=== PATIENT | female | born 1995 | race African-American/Black ===

== ENCOUNTER 2017-01-17 14:40 | Emergency (ER) | payer MEDICAID ==
[~2017-01-17] VITALS: Ht 167.6 cm; Wt 68.0 kg
[2017-01-17 15:15] VITALS: BP 115/65
[2017-01-17] MEDS ORDERED: KETOROLAC TROMETH 60MG/2ML VIAL IM ONE (17:15)
== END 2017-01-17 17:59 | disposition home or self-care (01) ==
LOC: ER 14:43
DX: G43.909 Migraine, unspecified, not intractable, without status migrainosus (principal)
CPT/HCPCS: 96372; 99283; J1885

== ENCOUNTER 2020-01-25 10:23 | Inpatient (IN) | payer MEDICAID ==
[~2020-01-25] VITALS: Ht 167.6 cm; Wt 59.0 kg
[2020-01-25] MEDS ORDERED: SODIUM CHLORIDE 0.9% 1,000 ML IV ONE ×2 (10:48)
[2020-01-25 10:51] LABS: Basophils # (auto) 0.1 10 ^3/uL (0-0.2); Basophils % (auto) 0.4 % (0.0-2.0); Eosinophils # (auto) 0 10 ^3/uL (0-0.8); Eosinophils % (auto) 0.2 % (0.0-7.0); Hemoglobin 12.3 g/dL (12.2-16.2); Lymphocytes # (auto) 1.2 10 ^3/uL (0.4-5.4); Lymphocytes % (auto) 7.9 % (10.0-50.0); Mean Corpuscular Hemoglobin 27.9 pg (28.0-32.0); Mean Corpuscular Hgb Conc. 32.3 g/dL (32.0-36.0); Mean Corpuscular Volume 86.2 fL (80.0-100.0); Monocytes % (auto) 6.8 % (0.0-12.0); Neutrophils # (auto) 12.9 10 ^3/uL (1.6-8.6); Neutrophils % (auto) 84.7 % (37.0-80.0); Nucleated Red Blood Cells % 0.1 %; Platelet Count (auto) 313 10^3/uL (140-450); Red Cell Distribution Width 19.1 % (11.8-14.3); White Blood Cell 15.2 10^3/uL (4.4-10.8)
[2020-01-25] MEDS ORDERED: IOHEXOL 300 MG/ML 100ML BOTTLE IJ ONE (10:55)
[2020-01-25 11:04] LABS: Albumin 3.5 g/dL (3.4-5.0); Calcium 9.1 mg/dL (8.5-10.1); Potassium 3.8 mmol/L (3.5-5.1)
[2020-01-25 11:06] LABS: INR 1.12 (0.9-1.15); Partial Thromboplastin Time 26.1 sec (23.64-32.05)
[2020-01-25 11:07] LABS: BUN/Creatinine Ratio 18.1; Bilirubin, Total 1.5 mg/dL (0.2-1.0); Total Protein 8.6 g/dL (6.4-8.2)
[2020-01-25] MEDS ORDERED: ONDANSETRON HCL 4 MG/2 ML VIAL IV ONE (11:45)
[2020-01-25] MEDS ORDERED: MORPHINE SULFATE 4 MG/ML SYR/VIAL IV ONE (11:45)
[2020-01-25] MEDS ORDERED: PIPERACILLIN-TAZOB 3.375GM 100 ML IV ONE (11:45)
[2020-01-25] MEDS ORDERED: ONDANSETRON HCL 4 MG/2 ML VIAL IV PRN (12:15)
[2020-01-25] MEDS: SODIUM CHLORIDE 0.9% 1,000 ML IV SCH ×2 (12:29→20:53)
[2020-01-25] MEDS ORDERED: metroNIDAZOLE 500MG/100ML 100 ML IV SCH (14:00)
--- NOTE | 2020-01-25 14:10 | NUR ---
MS admit from ER ALISHA DECKER admitted to tele/MS after SBAR received from MAAME Barbour. Patient oriented to KAROLINA CHACKO RN primary RN, unit, room, bed, and unit policies regarding patient care and visiting hours. Bed in lowest/locked position, bed rails up x2, call light within reach. Patient weighed by bedscale and encouraged to call if they need something. All questions and concerns addressed, patient verbalized understanding.
--- NOTE | 2020-01-25 14:50 | NUR ---
PAIN PATIENT C/O 03/23 TO NOEL ARRIAGA. WILL MEDICATE PER MD ORDERS
[2020-01-25] MEDS: HYDROmorphone HCL 2 MG/ML VL IV PRN ×2 (15:13→20:24)
--- NOTE | 2020-01-25 19:30 | NUR ---
Opening Shift Note Report received from day shift RN. Assumed care. Patient awake and A&O x4. No S/S of distress/SOB noted and denies pain at this time. Instructed on POC and to call for assist PRN, will continue to monitor for changes Q1hr and PRN.
--- NOTE | 2020-01-25 20:24 | NUR ---
PAIN PATIENT COMPLAINED OF ABDOMINAL PAIN 7/10 ON A NUMERICAL SCALE. WILL MEDICATE PER MD ORDERS.
--- NOTE | 2020-01-25 20:54 | NUR ---
PAIN REASSESSMENT PATIENT NOTED RESTING IN BED COMFORTABLY AND DENIES PAIN AT THIS TIME. WILL CONTINUE TO MONITOR.
--- NOTE | 2020-01-25 21:10 | NUR ---
PATIENT COMPLAINED OF DIZZINESS. BLOOD GLUCOSE LEVEL CHECKED: 46 HOSPITALIST PAGED. PATIENT AWAKE AND ALERT AND ORIENTATED.
--- NOTE | 2020-01-25 21:19 | NUR ---
HOSPITALIST CALLED BACK. NEW ORDERS GIVEN, READ BACK, AND VERIFIED.
[2020-01-25] MEDS ORDERED: DEXTROSE (50%) 50ML SYRG IV ONE (21:30)
[2020-01-25] MEDS: D5W/SOD CHL 0.45% 1,000 ML IV SCH (21:38)
[2020-01-25 22:00] VITALS: BP 114/73
--- NOTE | 2020-01-25 22:29 | NUR ---
BLOOD GLUCOSE REASSESSMENT: 136 WILL CONTINUE TO MONITOR
--- NOTE | 2020-01-26 04:45 | NUR ---
URINE SAMPLE COLLECTED AND SENT TO THE LAB.
[2020-01-26 05:00] VITALS: BP 104/63
[2020-01-26 05:21] LABS: Urine Bacteria FEW /hpf (None Seen); Urine Blood 2+ /uL (Negative); Urine Mucus FEW (None Seen); Urine Specific Gravity 1.016 (1.001-1.035); Urine WBC 1 /hpf (0 - 5)
[2020-01-26 05:32] LABS: Basophils # (auto) 0 10 ^3/uL (0-0.2); Basophils % (auto) 0.1 % (0.0-2.0); Eosinophils # (auto) 0.1 10 ^3/uL (0-0.8); Eosinophils % (auto) 0.5 % (0.0-7.0); Hematocrit 31.6 % (36.0-46.0); Hemoglobin 10.2 g/dL (12.2-16.2); Lymphocytes # (auto) 0.7 10 ^3/uL (0.4-5.4); Lymphocytes % (auto) 6.3 % (10.0-50.0); Mean Corpuscular Hemoglobin 28.2 pg (28.0-32.0); Mean Corpuscular Hgb Conc. 32.3 g/dL (32.0-36.0); Mean Corpuscular Volume 87.4 fL (80.0-100.0); Monocytes # (auto) 0.8 10 ^3/uL (0-1.3); Monocytes % (auto) 7.2 % (0.0-12.0); Neutrophils % (auto) 85.9 % (37.0-80.0); Platelet Count (auto) 268 10^3/uL (140-450); Red Blood Cells 3.61 10^6/uL (4.0-5.20); Red Cell Distribution Width 19.2 % (11.8-14.3); White Blood Cell 11.7 10^3/uL (4.4-10.8)
[2020-01-26 05:45] LABS: Albumin 2.7 g/dL (3.4-5.0); Calcium 8.4 mg/dL (8.5-10.1); Potassium 3.5 mmol/L (3.5-5.1)
[2020-01-26 05:49] LABS: BUN/Creatinine Ratio 13.3; Total Protein 6.9 g/dL (6.4-8.2)
--- NOTE | 2020-01-26 07:40 | NUR ---
Opening Shift Note Assumed care of patient, awake and alert. No S/S of distress/SOB or pain reported at this time. Instructed on POC and to call for assist PRN, call light within reach, instructed to call for assist, IV patent to right AC, no redness, swelling, or pain reported to site, will continue to monitor for changes Q1hr and PRN.
[2020-01-26 08:00] VITALS: BP 127/62
[2020-01-26 08:33] VITALS: BP 127/62
[2020-01-26] MEDS: PANTOPRAZOLE 40 MG/10 ML VIAL INJ IV SCH (09:33)
[2020-01-26] MEDS: HYDROmorphone HCL 2 MG/ML VL IV PRN ×3 (09:33→21:49)
[2020-01-26] MEDS ORDERED: levoFLOXacin 500MG 100 ML IV SCH (10:00)
--- NOTE | 2020-01-26 11:35 | NUR ---
MD DR MELLO AT BEDSIDE, DISCUSSING POC WITH PT, PT AXOX4, NEW ORDERS RECEIVED TO ADVANCE DIET TOLERATED
--- NOTE | 2020-01-26 12:35 | NUR ---
Pt is currently listed as having no current insurance. They are currently unemployed. Discussed with pt eligibility options for medical coverage based on their current situation. Pt referred to Prabhu Eagle, [facility] [employer] assist with process for [facility] insurance coverage. Advised pt that additional information regarding D/C planning would be provided prior to their discharge. Will follow up with Prabhu regarding the insurance status.
[2020-01-26 13:00] VITALS: BP 107/74
[2020-01-26] MEDS: D5W/SOD CHL 0.45% 1,000 ML IV SCH (14:42)
[2020-01-26 17:14] VITALS: BP 108/72
--- NOTE | 2020-01-26 20:20 | NUR ---
Opening Shift Note Assumed care of patient, awake and alert. No S/S of distress/SOB. POC discussed and questions answered, bed is locked in lowest position with side rails up x2 for safety. Call light is within reach and patient is encouraged to call as needed. Will continue to monitor for changes Q1hr and PRN.
--- NOTE | 2020-01-26 21:15 | NUR ---
IV removal Patient complain of pain at IV site. IV DC'd with clean sterile technique, catheter fully intact. Pressure dressing applied to site. Patient tolerated well.
--- NOTE | 2020-01-26 21:35 | NUR ---
IV insertion IV access obtained, via clean sterile technique by inserting 22 gauge catheter at left forearm after 1 attempt. IV secured properly. No trauma to site. Patient tolerated well.
[2020-01-26 22:00] VITALS: BP 117/73
[2020-01-27] MEDS: D5W/SOD CHL 0.45% 1,000 ML IV SCH (03:18)
[2020-01-27 05:00] VITALS: BP 118/70
[2020-01-27 06:45] LABS: Basophils # (auto) 0 10 ^3/uL (0-0.2); Basophils % (auto) 0.3 % (0.0-2.0); Eosinophils # (auto) 0.1 10 ^3/uL (0-0.8); Eosinophils % (auto) 0.7 % (0.0-7.0); Hematocrit 31.6 % (36.0-46.0); Hemoglobin 10.2 g/dL (12.2-16.2); Lymphocytes % (auto) 9.9 % (10.0-50.0); Mean Corpuscular Hemoglobin 28.4 pg (28.0-32.0); Mean Corpuscular Hgb Conc. 32.3 g/dL (32.0-36.0); Mean Corpuscular Volume 88.2 fL (80.0-100.0); Monocytes % (auto) 9.5 % (0.0-12.0); Neutrophils # (auto) 8.1 10 ^3/uL (1.6-8.6); Neutrophils % (auto) 79.6 % (37.0-80.0); Platelet Count (auto) 267 10^3/uL (140-450); Red Blood Cells 3.58 10^6/uL (4.0-5.20); Red Cell Distribution Width 19.3 % (11.8-14.3); White Blood Cell 10.1 10^3/uL (4.4-10.8)
[2020-01-27 06:55] LABS: Albumin 2.5 g/dL (3.4-5.0); Calcium 8.4 mg/dL (8.5-10.1); Potassium 3.1 mmol/L (3.5-5.1)
[2020-01-27 06:58] LABS: BUN/Creatinine Ratio 4.3; Bilirubin, Total 0.7 mg/dL (0.2-1.0); Total Protein 6.9 g/dL (6.4-8.2)
--- NOTE | 2020-01-27 07:30 | NUR ---
Opening Note Assumed patient care from BRI RN.
--- NOTE | 2020-01-27 08:04 | NUR ---
Patient Rounds Patient is currently laying in bed on left side. Patient states she has 4/10 pain but feels it is tolerable at this level. Per patient, she ate 100% of breakfast (clear liquid diet), with minimal pain and no nausea. Patient states she feels better and is inquiring about possible discharge. No signs of distress noted at this time, respirations are even and unlabored, safety precautions are in place. Will continue to monitor.
[2020-01-27 09:00] VITALS: BP 133/79
[2020-01-27] MEDS: PANTOPRAZOLE 40 MG/10 ML VIAL INJ IV SCH (09:09)
--- NOTE | 2020-01-27 09:38 | NUR ---
at bedside Dr. Gomez at bedside discussing plan of care with patient. Patient to be discharged today. Patient currently shows no signs of distress, respirations are even and unlabored; safety precautions in place, will continue to monitor.
--- NOTE | 2020-01-27 10:43 | NUR ---
Called [facility] Spoke with Destini regarding patient's medical insurance. Per Destini, Prabhu Eagle took over and patient is clear for discharge.
[2020-01-27 11:14] VITALS: BP 133/79
--- NOTE | 2020-01-27 12:42 | NUR ---
Discharge Discharge instructions given as ordered. Encourage to follow up with PMD as instructed. All questions and concerns addressed. Patient verbalized understanding. IV removed with catheter intact, pressure dressing applied. Patient ambulated to vehicle with all personal belongings. No distress noted at time of departure. Patient given information for follow up appointment/Medical, prescriptions, and work note.
== END 2020-01-27 12:42 | disposition home or self-care (01) | DRG 439 ==
LOC: ER 10:23 → OVERFLOW 10:24 → WEST WING 14:16
PROVIDERS: ADMIT Nurse Practitioner Acute Care; ATTEND Family Medicine
DX: K85.90 Acute pancreatitis without necrosis or infection, unspecified (principal); R65.10 Systemic inflammatory response syndrome (SIRS) of non-infectious origin without acute organ dysfunction; E87.1 Hypo-osmolality and hyponatremia; E11.9 Type 2 diabetes mellitus without complications; E86.0 Dehydration
CPT/HCPCS: 36415; 71046; 74177; 76705; 80053; 80061; 81001; 81025; 82962; 83605; 83690; 84484; 85025; 85610; 85730; 87040; 96361; 96365; 96375; 99291; C9113; G0378; J2405; J2543

== ENCOUNTER 2020-07-12 09:08 | Inpatient (IN) | payer MEDICAID ==
[~2020-07-12] VITALS: Ht 167.6 cm; Wt 60.6 kg
[2020-07-12 09:49] LABS: Urine WBC None Seen /hpf (0 - 5)
[2020-07-12 09:57] LABS: Eosinophils # (auto) 0.1 10 ^3/uL (0-0.8); Hematocrit 32.4 % (36.0-46.0); Lymphocytes # (auto) 1.6 10 ^3/uL (0.4-5.4); Monocytes # (auto) 0.4 10 ^3/uL (0-1.3); Neutrophils # (auto) 2.6 10 ^3/uL (1.6-8.6); Nucleated Red Blood Cells % 0.1 %; White Blood Cell 4.8 10^3/uL (4.4-10.8)
[2020-07-12 09:57] LABS: Urine Bacteria NONE SEEN /hpf (None Seen); Urine Blood TRACE /uL (Negative)
[2020-07-12 10:05] LABS: Basophils # (auto) 0 10 ^3/uL (0-0.2); Basophils % (auto) 0.9 % (0.0-2.0); Eosinophils % (auto) 2.1 % (0.0-7.0); Hemoglobin 10.1 g/dL (12.2-16.2); Lymphocytes % (auto) 34.6 % (10.0-50.0); Mean Corpuscular Hemoglobin 25.5 pg (28.0-32.0); Mean Corpuscular Hgb Conc. 31.4 g/dL (32.0-36.0); Mean Corpuscular Volume 81.4 fL (80.0-100.0); Monocytes % (auto) 7.9 % (0.0-12.0); Neutrophils % (auto) 54.5 % (37.0-80.0); Platelet Count (auto) 411 10^3/uL (140-450); Red Blood Cells 3.98 10^6/uL (4.0-5.20); Red Cell Distribution Width 19.7 % (11.8-14.3)
[2020-07-12 10:31] LABS: Albumin 3.3 g/dL (3.4-5.0); Calcium 8.7 mg/dL (8.5-10.1); Potassium 3.9 mmol/L (3.5-5.1)
[2020-07-12 10:35] LABS: BUN/Creatinine Ratio 8.2; Bilirubin, Total 0.6 mg/dL (0.2-1.0); Total Protein 8.1 g/dL (6.4-8.2)
[2020-07-12] MEDS ORDERED: MORPHINE SULFATE 4 MG/ML SYR/VIAL IV ONE (10:45)
[2020-07-12] MEDS ORDERED: ONDANSETRON HCL 4 MG/2 ML VIAL IV ONE (10:45)
[2020-07-12] MEDS ORDERED: PIPERACILLIN-TAZOB 3.375GM 100 ML IV ONE (11:00)
[2020-07-12] MEDS ORDERED: SODIUM CHLORIDE 0.9% 1,000 ML IV ONE ×2 (11:00)
[2020-07-12 12:26] LABS: Amphetamine Screen, Urine NEGATIVE (NEGATIVE); Barbiturate Scree,Urine NEGATIVE (NEGATIVE); Benzodiazephine Screen, Urine NEGATIVE (NEGATIVE); Cannabinoid Screen, Urine NEGATIVE (NEGATIVE); Cocaine Screen, Urine NEGATIVE (NEGATIVE); Opiate Scree,Urine NEGATIVE (NEGATIVE); Phencyclidine Screen, Urine NEGATIVE (NEGATIVE)
[2020-07-12 12:35] LABS: Cholesterol 130 mg/dL (< 200); HDL Cholesterol 46 mg/dL (40-59); LDL Cholesterol 73 mg/dL (< 100); Triglycerides 104 mg/dL (< 150)
[2020-07-12] MEDS ORDERED: IBUP800T24 PO (12:57)
--- NOTE | 2020-07-12 13:18 | NUR ---
MS admit from ER ALISHA DECKER admitted to tele/MS after SBAR received. Patient oriented to Jenny Gonzalez primary RN, unit, room, bed, and unit policies regarding patient care and visiting hours. Patient weighed by bedscale and encouraged to call if they need something. All questions and concerns addressed, patient verbalized understanding. PATIENT DENIES PAIN, NO SOB OR S/S DISTRESS NOTED
[2020-07-12] MEDS: SODIUM CHLORIDE 0.9% 1,000 ML IV SCH ×2 (15:40→23:39)
[2020-07-12] MEDS: MORPHINE SULFATE 4 MG/ML SYR/VIAL IV PRN ×2 (15:47→19:51)
--- NOTE | 2020-07-12 15:50 | NUR ---
MEDICATED FOR 10/10 ABDOMINAL AND BACK PAIN. WILL CONTINUE TO REASSESS FOR CHANGES.
[2020-07-12 17:00] VITALS: BP 120/69
[2020-07-12] MEDS: ONDANSETRON HCL 4 MG/2 ML VIAL IV PRN (20:02)
[2020-07-12 21:25] VITALS: BP 121/74
--- NOTE | 2020-07-13 00:45 | NUR ---
IV insertion IV access obtained, via clean sterile technique by inserting 22 gauge catheter at left AC after 1 attempt. IV secured properly. No trauma to site. Patient tolerated well.
[2020-07-13] MEDS: MORPHINE SULFATE 4 MG/ML SYR/VIAL IV PRN ×5 (00:48→20:36)
[2020-07-13 05:00] VITALS: BP 111/72
[2020-07-13 06:33] LABS: Albumin 2.6 g/dL (3.4-5.0); BUN/Creatinine Ratio 6.8; Calcium 8.3 mg/dL (8.5-10.1); Potassium 3.6 mmol/L (3.5-5.1)
[2020-07-13 06:35] LABS: Bilirubin, Total 1.1 mg/dL (0.2-1.0); Total Protein 6.7 g/dL (6.4-8.2)
--- NOTE | 2020-07-13 07:32 | NUR ---
RECEIVED REPORT FROM [facility] SHIFT RN, PATIENT AWAKE, A/O X4. DENIES REPORTS 05/23 BUT WILL WAIT FOR DUE TIME. DENIES SOB, NO S/S OF DISTRESS. PLAN OF CARE DISCUSSED, BED IN LOW AND LOCKED POSITION, CALL LIGHT AND PHONE WITHIN REACH. PT. ADVISED TO CALL FOR ASSISTANCE PRN. WILL CONTINUE TO MONITOR Q1HR AND PRN.
[2020-07-13] MEDS: SODIUM CHLORIDE 0.9% 1,000 ML IV SCH ×2 (08:05→18:08)
[2020-07-13 09:00] VITALS: BP 114/63
[2020-07-13] MEDS ORDERED: PANTOPRAZOLE 40 MG/10 ML VIAL INJ IV SCH (10:00)
[2020-07-13] MEDS ORDERED: THIAMINE 100mg/ml INJ (200mg/2ml VIAL) IV ONE (12:15)
[2020-07-13] MEDS ORDERED: FOLIC ACID 1 MG in D5W 5% 50 ML INJ ONE (12:15)
[2020-07-13] MEDS ORDERED: chlordiazePOXIDE HCL 5 MG CAP PO ONE (12:15)
[2020-07-13 13:00] VITALS: BP 111/85
--- NOTE | 2020-07-13 16:02 | NUR ---
PATIENT HAD AN EPISODE OF VOMITING WILL MEDICATE PER eMAR
[2020-07-13 16:48] VITALS: BP 147/92
[2020-07-13] MEDS: chlordiazePOXIDE HCL 5 MG CAP PO SCH ×2 (18:35→22:15)
--- NOTE | 2020-07-13 19:35 | NUR ---
OPENING SHIFT NOTE Assumed care of patient who is A&O x4. Currently on RA with no s/s of distress. Reports 10/10 pain to upper abdomen. Pain management options discussed. PIV in left AC is intact and patent. Currently infusing IVF as ordered. Patient is ambulatory without the use of assistive devices at baseline. POC discussed and patient verbalizes understanding. Bed is in low locked position with side rails up x2. Call light is within reach and patient encouraged to call for assistance when needed. Will continue to monitor for changes PRN.
[2020-07-13 22:00] VITALS: BP 137/87
[2020-07-13] MEDS: PANTOPRAZOLE 40 MG TAB PO SCH (22:15)
[2020-07-13] MEDS: ONDANSETRON HCL 4 MG/2 ML VIAL IV PRN (22:16)
[2020-07-14] MEDS: MORPHINE SULFATE 4 MG/ML SYR/VIAL IV PRN ×5 (02:25→21:38)
[2020-07-14] MEDS: SODIUM CHLORIDE 0.9% 1,000 ML IV SCH (04:29)
[2020-07-14 05:00] VITALS: BP 120/83
[2020-07-14] MEDS: chlordiazePOXIDE HCL 5 MG CAP PO SCH ×4 (05:57→21:18)
--- NOTE | 2020-07-14 07:40 | NUR ---
OPENING NOTE ASSUMED CARE OF PT. ALERT AND ORIENTED. NO S/S OF SOB/DISTRESS NOTED. BED SET TO LOWEST POSITION/LOCKED. BEDSIDE RAILS UP X2. CALL LIGHT WITHIN REACH. SITTER AT BEDSIDE FOR SAFETY. WILL CONTINUE TO MONITOR Q 1HR AND PRN.
[2020-07-14 09:00] VITALS: BP 118/73
[2020-07-14] MEDS: PANTOPRAZOLE 40 MG TAB PO SCH ×2 (09:04→21:19)
[2020-07-14] MEDS: HYDROcodone-ACET 5/325MG TAB PO PRN ×2 (09:05→20:11)
[2020-07-14] MEDS: THIAMINE 100mg/ml INJ (200mg/2ml VIAL) IV SCH (09:06)
[2020-07-14] MEDS: FOLIC ACID 1 MG in D5W 5% 50 ML INJ SCH (09:07)
--- NOTE | 2020-07-14 10:51 | NUR ---
Nutrition Assessment Est energy needs 2480-4359 kcal (25-30 kcal/kg BW 61.3kg) Est protein needs 49-61g (0.8-1g/kg BW 61.3kg) Will reassess prn. Addendum: 07/14/20 at [address] Amended: Links added.
[2020-07-14] MEDS: SOD CHL 0.9%/ KCL 20MEQ 1,000 ML IV SCH (11:53)
[2020-07-14 13:00] VITALS: BP 120/74
[2020-07-14] MEDS: ONDANSETRON HCL 4 MG/2 ML VIAL IV PRN (15:29)
[2020-07-14 17:00] VITALS: BP 123/82
--- NOTE | 2020-07-14 20:11 | NUR ---
Opening Shift Note Assumed care of patient, awake and alert. No S/S of distress/SOB c/o abdominal pain. Instructed on POC and to call for assist PRN, will continue to monitor for changes Q1hr and PRN.Medicated with [place] 5/325,mg.one tab. for pain level of 6/10 as needed.
[2020-07-14 22:09] VITALS: BP 134/87
[2020-07-15] MEDS: SOD CHL 0.9%/ KCL 20MEQ 1,000 ML IV SCH ×2 (00:06→15:16)
[2020-07-15] MEDS: MORPHINE SULFATE 4 MG/ML SYR/VIAL IV PRN ×5 (00:14→20:24)
[2020-07-15 05:01] VITALS: BP 112/76
[2020-07-15] MEDS: chlordiazePOXIDE HCL 5 MG CAP PO SCH ×4 (05:28→21:34)
--- NOTE | 2020-07-15 07:19 | NUR ---
Care report given to Stephon Kc, patient s resting no distress.
[2020-07-15 09:00] VITALS: BP 125/87
[2020-07-15] MEDS: PANTOPRAZOLE 40 MG TAB PO SCH ×2 (10:07→21:34)
[2020-07-15] MEDS: THIAMINE 100mg/ml INJ (200mg/2ml VIAL) IV SCH (10:07)
[2020-07-15] MEDS ORDERED: IOHEXOL 300 MG/ML 100ML BOTTLE IJ ONE (10:28)
[2020-07-15 10:53] LABS: BUN/Creatinine Ratio 4.2; Calcium 8.3 mg/dL (8.5-10.1); Potassium 3.8 mmol/L (3.5-5.1)
[2020-07-15] MEDS: FOLIC ACID 1 MG in D5W 5% 50 ML INJ SCH (11:25)
--- NOTE | 2020-07-15 12:08 | NUR ---
Assessment Patient is a 25-year-old female who is alert and oriented. Prior to admission patient lived home with her girlfriend Iris and functioned independently. Patient does not have DME needs. Per patient she will return home to her prior living arrangements post discharge and family will transport her home. Offered patient resources for Alcohol use. Patient refused Resource stating she only drinks socially. Patient health plan is [facility] and it does not cover any home health service. Informed patient she has the right to participate in all discharge planning. Patient verbalized understanding and agreed to discharge plan. Addendum: 07/15/20 at 1221 by ROHIT BRICENO Amended: Links added.
[2020-07-15] MEDS: HYDROcodone-ACET 5/325MG TAB PO PRN (12:28)
[2020-07-15 13:00] VITALS: BP 131/98
[2020-07-15 17:16] VITALS: BP 122/86
--- NOTE | 2020-07-15 20:00 | NUR ---
Opening Shift Note Assumed care of patient, awake and alert. No S/S of distress/SOB or pain. Instructed on POC and to call for assist PRN, will continue to monitor for changes Q1hr and PRN.With i.v. fluid of N.S.0.9% plus 20meq pot. at 75cc /hour infusing well, in the right forearm.
[2020-07-15] MEDS: ONDANSETRON HCL 4 MG/2 ML VIAL IV PRN (21:38)
[2020-07-15 22:00] VITALS: BP 124/80
[2020-07-16] MEDS: MORPHINE SULFATE 4 MG/ML SYR/VIAL IV PRN ×3 (01:37→10:04)
[2020-07-16] MEDS: SOD CHL 0.9%/ KCL 20MEQ 1,000 ML IV SCH (02:38)
[2020-07-16 05:00] VITALS: BP 110/68
[2020-07-16] MEDS: chlordiazePOXIDE HCL 5 MG CAP PO SCH ×2 (05:39→12:00)
--- NOTE | 2020-07-16 07:35 | NUR ---
Opening Note Received report from second shift supervisor RN. Patient is awake, alert and oriented x4. No signs or symptoms of distress noted at this time. Patient complains of abdominal pain 8/10 and is requesting pain medications. Will medicate per orders. Reviewed plan of care with patient, patient verbalized understanding. Bed in low and locked position, call light within reach. Will continue to monitor Q1 hour and PRN.
[2020-07-16 09:00] VITALS: BP 149/67
--- NOTE | 2020-07-16 10:00 | NUR ---
Pain Patient states abdominal pain 8/10 and is requesting pain medications. Will medicate per orders. Will continue to monitor Q1 hour and PRN.
[2020-07-16] MEDS: THIAMINE 100mg/ml INJ (200mg/2ml VIAL) IV SCH (10:04)
[2020-07-16] MEDS: PANTOPRAZOLE 40 MG TAB PO SCH (10:04)
[2020-07-16] MEDS: FOLIC ACID 1 MG in D5W 5% 50 ML INJ SCH (10:30)
--- NOTE | 2020-07-16 12:10 | NUR ---
Dr. Link at bedside MD at bedside discussing plan of care with patient and this RN. Patient to discharge home later today. Will continue to monitor Q1 hour and PRN.
[2020-07-16 13:00] VITALS: BP 120/81
[2020-07-16 13:28] VITALS: BP 149/67
--- NOTE | 2020-07-16 14:04 | NUR ---
Discharge Discharge instructions given as ordered. Encourage to follow up with [facility] post discharge clinic as instructed. All questions and concerns addressed. Patient verbalized understanding. Medication reconciliation form completed and copy given to patient. IV removed with catheter intact, pressure dressing applied. Patient ambulated to private vehicle with all personal belongings, accompanied by this RN. No signs or symptoms of distress noted at this time.
== END 2020-07-16 14:05 | disposition home or self-care (01) | DRG 282 ==
LOC: ER 09:08 → OVERFLOW 09:09 → CENTRAL 13:15
PROVIDERS: ADMIT Nurse Practitioner Acute Care; ATTEND Internal Medicine
DX: K85.20 Alcohol induced acute pancreatitis without necrosis or infection (principal); F10.129 Alcohol abuse with intoxication, unspecified; D50.9 Iron deficiency anemia, unspecified; E11.9 Type 2 diabetes mellitus without complications; E44.0 Moderate protein-calorie malnutrition; R65.10 Systemic inflammatory response syndrome (SIRS) of non-infectious origin without acute organ dysfunction; Y90.6 Blood alcohol level of 120-199 mg/100 ml; K86.1 Other chronic pancreatitis; F10.139 Alcohol abuse with withdrawal, unspecified; Z83.2 Family history of diseases of the blood and blood-forming organs and certain disorders involving the immune mechanism
CPT/HCPCS: 36415; 71045; 74176; 74177; 76705; 80048; 80053; 80061; 80307; 80320; 81001; 83605; 83690; 85025; 87040; C9113; G0378; J2405; J2543; J7060

== ENCOUNTER 2021-08-03 16:10 | Inpatient (IN) | payer MEDICAID, OTHER ==
[~2021-08-03] VITALS: Ht 157.5 cm; Wt 54.5 kg
[~2021-08-03 16:10] MED LIST: IBUP800T27 PO
[2021-08-03] MEDS ORDERED: ONDANSETRON HCL 4 MG/2 ML VIAL IV ONE (16:30)
[2021-08-03] MEDS ORDERED: SODIUM CHLORIDE 0.9% 1,000 ML IV ONE ×2 (16:30)
[2021-08-03] MEDS ORDERED: MORPHINE SULFATE 4 MG/ML SYR/VIAL IV ONE (16:30)
[2021-08-03 16:43] LABS: Basophils # (auto) 0 10 ^3/uL (0-0.2); Basophils % (auto) 1.2 % (0.0-2.0); Eosinophils # (auto) 0 10 ^3/uL (0-0.8); Eosinophils % (auto) 0.7 % (0.0-7.0); Hematocrit 27.8 % (36.0-46.0); Hemoglobin 8.8 g/dL (12.2-16.2); Lymphocytes # (auto) 1.7 10 ^3/uL (0.4-5.4); Lymphocytes % (auto) 49.2 % (10.0-50.0); Mean Corpuscular Hgb Conc. 31.7 g/dL (32.0-36.0); Mean Corpuscular Volume 88.3 fL (80.0-100.0); Monocytes # (auto) 0.4 10 ^3/uL (0-1.3); Monocytes % (auto) 10.9 % (0.0-12.0); Neutrophils # (auto) 1.3 10 ^3/uL (1.6-8.6); Nucleated Red Blood Cells % 0.1 %; Red Blood Cells 3.15 10^6/uL (4.0-5.20); Red Cell Distribution Width 25.3 % (11.8-14.3); White Blood Cell 3.5 10^3/uL (4.4-10.8)
[2021-08-03 16:59] LABS: INR 1.19 (0.9-1.15); Partial Thromboplastin Time 24.5 sec (23.6-33.0)
[2021-08-03 17:03] LABS: Albumin 2.5 g/dL (3.4-5.0); Anion Gap 7 (5-15); Blood Urea Nitrogen 8 mg/dL (7-18); Calcium 8.2 mg/dL (8.5-10.1); Carbon Dioxide 24 mmol/L (21-32); Chloride 108 mmol/L (98-107); Glucose 134 mg/dL (74-106); Lipase 76 U/L (73-393); Potassium 3.8 mmol/L (3.5-5.1); Sodium 139 mmol/L (136-145)
[2021-08-03 17:06] LABS: Lactic Acid w/Reflex 2.1 mmol/L (0.4-2.0)
[2021-08-03 17:12] LABS: Alanine Aminotransferase 140 U/L (13-56); Alkaline Phosphatase 129 U/L (45-117); Aspartate Aminotransferase 723 U/L (15-37); BUN/Creatinine Ratio 14.8; Bilirubin, Total 0.9 mg/dL (0.2-1.0); GFR African American 177 mL/min; GFR Non-African American 146 mL/min
[2021-08-03] MEDS ORDERED: MORPHINE SULFATE INJECTION 2 MG/ML SYRG IV PRN (20:15)
[2021-08-03] MEDS ORDERED: hydrALAZINE HCL 20 MG/ML VL IV PRN (20:15)
[2021-08-03] MEDS ORDERED: LORazepam 2MG/ML-1ML VIAL IV PRN ×2 (20:15→20:30)
[2021-08-03] MEDS ORDERED: NITROGLYCERIN 0.4 MG SL TAB SL PRN (20:15)
[2021-08-03] MEDS: SODIUM CHLORIDE 0.9% 1,000 ML IV SCH (21:17)
[2021-08-03 21:53] VITALS: BP 122/82
[2021-08-03 22:33] LABS: Hemoglobin 9.7 g/dL (12.2-16.2)
[2021-08-03 23:03] VITALS: BP 122/82
[2021-08-03] MEDS: MORPHINE SULFATE 4 MG/ML SYR/VIAL IV PRN (23:09)
[2021-08-03] MEDS: ONDANSETRON HCL 4 MG/2 ML VIAL IV PRN (23:09)
[2021-08-04 02:12] LABS: Hematocrit 28.7 % (36.0-46.0); Hemoglobin 9.1 g/dL (12.2-16.2)
[2021-08-04] MEDS: MORPHINE SULFATE 4 MG/ML SYR/VIAL IV PRN ×6 (02:26→23:34)
[2021-08-04 04:59] VITALS: BP 118/79
[2021-08-04 06:01] LABS: Hemoglobin 8.5 g/dL (12.2-16.2); White Blood Cell 3.6 10^3/uL (4.4-10.8)
[2021-08-04 06:05] LABS: Hematocrit 26.8 % (36.0-46.0); Mean Corpuscular Hemoglobin 28.3 pg (28.0-32.0); Mean Corpuscular Hgb Conc. 31.7 g/dL (32.0-36.0); Mean Corpuscular Volume 89.2 fL (80.0-100.0)
[2021-08-04 06:25] LABS: Red Cell Distribution Width 25.2 % (11.8-14.3)
[2021-08-04 06:28] LABS: Band Neutrophils % (manual) 0; Basophils % (manual) 0 (0.0-2.0); Blast Cells 0; Metamyelocytes % 0; Myelocytes % 0; Promyelocytes % 0; Reactive Lymphocytes 0
[2021-08-04 06:34] LABS: Albumin 2.4 g/dL (3.4-5.0); BUN/Creatinine Ratio 14.3; Bilirubin, Total 0.9 mg/dL (0.2-1.0); Calcium 8.1 mg/dL (8.5-10.1); Total Protein 6.6 g/dL (6.4-8.2)
[2021-08-04] MEDS: PANTOPRAZOLE 40 MG/10 ML VIAL INJ IV SCH (08:06)
[2021-08-04] MEDS: ONDANSETRON HCL 4 MG/2 ML VIAL IV PRN (08:07)
[2021-08-04 09:00] VITALS: BP 105/61
[2021-08-04] MEDS: SODIUM CHLORIDE 0.9% 1,000 ML IV SCH ×2 (09:48→16:24)
[2021-08-04 10:53] LABS: Hematocrit 27.3 % (36.0-46.0); Hemoglobin 8.6 g/dL (12.2-16.2)
[2021-08-04] MEDS: FOLIC ACID 1 MG in D5W 5% 50 ML INJ SCH (11:46)
[2021-08-04 13:00] VITALS: BP 106/64
[2021-08-04] MEDS ORDERED: cloNIDine HCL 0.1 MG TAB PO PRN (14:00)
[2021-08-04 14:12] LABS: Hematocrit 29.1 % (36.0-46.0); Hemoglobin 9.1 g/dL (12.2-16.2)
[2021-08-04] MEDS ORDERED: LACTULOSE 20Gm/30ML SOLN PO ONE (14:15)
[2021-08-04 15:58] LABS: % Iron Saturation 32.1 % (15-50)
[2021-08-04 16:35] LABS: Eosinophils % (manual) 3 (0-7); Lymphocytes % (manual) 59 (10.0-50.0); Monocytes % (manual) 4 (0-12)
[2021-08-04 16:43] LABS: Folate (Folic Acid) > 24.00 ng/mL (5.38-24)
[2021-08-04 16:48] VITALS: BP 127/86
[2021-08-04 21:31] LABS: Hemoglobin 8.2 g/dL (12.2-16.2)
[2021-08-04] MEDS: LACTULOSE 20Gm/30ML SOLN PO SCH (21:38)
[2021-08-04 21:43] LABS: Hematocrit 26.8 % (36.0-46.0)
[2021-08-04 22:00] VITALS: BP 127/94
[2021-08-05] MEDS: ONDANSETRON HCL 4 MG/2 ML VIAL IV PRN (01:47)
[2021-08-05] MEDS: SODIUM CHLORIDE 0.9% 1,000 ML IV SCH ×2 (02:42→12:12)
[2021-08-05] MEDS: MORPHINE SULFATE 4 MG/ML SYR/VIAL IV PRN ×5 (03:43→21:08)
[2021-08-05 05:00] VITALS: BP 127/72
[2021-08-05 08:41] VITALS: BP 123/89
[2021-08-05] MEDS ORDERED: ERGOCALCIFEROL 50,000 UNIT(1.25MG) CAP PO SCH (08:45)
[2021-08-05] MEDS: PANTOPRAZOLE 40 MG/10 ML VIAL INJ IV SCH (09:00)
[2021-08-05] MEDS: LACTULOSE 20Gm/30ML SOLN PO SCH (09:02)
[2021-08-05] MEDS ORDERED: LACTULOSE 20Gm/30ML SOLN PO PRN (12:00)
[2021-08-05] MEDS: FOLIC ACID 1 MG in D5W 5% 50 ML INJ SCH (12:11)
[2021-08-05 13:00] VITALS: BP 126/87
[2021-08-05 16:39] VITALS: BP 108/69
[2021-08-05 22:00] VITALS: BP 136/98
[2021-08-06] MEDS: MORPHINE SULFATE 4 MG/ML SYR/VIAL IV PRN ×3 (00:54→07:48)
[2021-08-06] MEDS: SODIUM CHLORIDE 0.9% 1,000 ML IV SCH ×2 (04:00→13:13)
[2021-08-06 05:00] VITALS: BP 118/76
[2021-08-06] MEDS: PANTOPRAZOLE 40 MG/10 ML VIAL INJ IV SCH (08:30)
[2021-08-06] MEDS: FOLIC ACID 1 MG in D5W 5% 50 ML INJ SCH (08:30)
[2021-08-06 09:00] VITALS: BP 112/90
[2021-08-06] MEDS: chlordiazePOXIDE HCL 25 MG CAP PO PRN ×2 (10:17→16:39)
[2021-08-06] MEDS ORDERED: LACTULOSE 20Gm/30ML SOLN PO PRN (10:30)
[2021-08-06 11:39] LABS: Basophils # (auto) 0 10 ^3/uL (0-0.2); Basophils % (auto) 1.6 % (0.0-2.0); Eosinophils # (auto) 0.1 10 ^3/uL (0-0.8); Eosinophils % (auto) 2.5 % (0.0-7.0); Hematocrit 28.5 % (36.0-46.0); Lymphocytes # (auto) 1.4 10 ^3/uL (0.4-5.4); Lymphocytes % (auto) 49.3 % (10.0-50.0); Mean Corpuscular Hemoglobin 28.2 pg (28.0-32.0); Mean Corpuscular Hgb Conc. 31.6 g/dL (32.0-36.0); Mean Corpuscular Volume 89.1 fL (80.0-100.0); Monocytes # (auto) 0.3 10 ^3/uL (0-1.3); Monocytes % (auto) 10.4 % (0.0-12.0); Neutrophils % (auto) 36.2 % (37.0-80.0); Nucleated Red Blood Cells % 0.3 %; White Blood Cell 2.9 10^3/uL (4.4-10.8)
[2021-08-06 11:42] LABS: Red Cell Distribution Width 24.2 % (11.8-14.3)
[2021-08-06 11:45] LABS: Albumin 2.2 g/dL (3.4-5.0)
[2021-08-06 11:54] LABS: BUN/Creatinine Ratio 4.3; Bilirubin, Total 1.6 mg/dL (0.2-1.0); Total Protein 6.2 g/dL (6.4-8.2)
[2021-08-06] MEDS: MORPHINE SULFATE INJECTION 2 MG/ML SYRG IV PRN ×3 (12:57→22:23)
[2021-08-06] MEDS: HYDROcodone-ACET 5/325MG TAB PO PRN (20:39)
[2021-08-06 22:00] VITALS: BP 122/81
[2021-08-07] MEDS: MORPHINE SULFATE INJECTION 2 MG/ML SYRG IV PRN ×4 (04:29→18:19)
[2021-08-07] MEDS: SODIUM CHLORIDE 0.9% 1,000 ML IV SCH ×2 (04:49→17:00)
[2021-08-07 05:00] VITALS: BP 127/87
[2021-08-07 08:30] VITALS: BP 130/57
[2021-08-07] MEDS: PANTOPRAZOLE 40 MG/10 ML VIAL INJ IV SCH (09:22)
[2021-08-07 12:30] VITALS: BP 122/95
[2021-08-07] MEDS: FOLIC ACID 1 MG in D5W 5% 50 ML INJ SCH (14:02)
[2021-08-07 17:00] VITALS: BP 107/83
[2021-08-07 22:00] VITALS: BP 123/86
[2021-08-08] MEDS: SODIUM CHLORIDE 0.9% 1,000 ML IV SCH (01:38)
[2021-08-08 05:00] VITALS: BP 128/73
[2021-08-08] MEDS: MORPHINE SULFATE INJECTION 2 MG/ML SYRG IV PRN (06:19)
[2021-08-08 09:00] VITALS: BP 117/78
[2021-08-08] MEDS ORDERED: PANT40TA2 PO (09:51)
[2021-08-08] MEDS: FOLIC ACID 1 MG in D5W 5% 50 ML INJ SCH (10:42)
[2021-08-08] MEDS: PANTOPRAZOLE 40 MG/10 ML VIAL INJ IV SCH (10:42)
[2021-08-08] MEDS: HYDROcodone-ACET 5/325MG TAB PO PRN (10:43)
[2021-08-08 11:32] VITALS: BP 117/78
[2021-08-08 12:00] LABS: Hemoglobin 8.8 g/dL (12.2-16.2)
[2021-08-08] MEDS ORDERED: CHOL20007 PO (16:52)
== END 2021-08-08 13:11 | disposition home or self-care (01) | DRG 439 ==
LOC: ER 16:10 → EDBD 16:10 → OVERFLOW 20:09 → WEST WING 21:44
PROVIDERS: ADMIT Family Medicine; ATTEND Internal Medicine
DX: K85.20 Alcohol induced acute pancreatitis without necrosis or infection (principal); F10.239 Alcohol dependence with withdrawal, unspecified; D64.9 Anemia, unspecified; E11.65 Type 2 diabetes mellitus with hyperglycemia; E55.9 Vitamin D deficiency, unspecified; K56.41 Fecal impaction; Z20.822 Contact with and (suspected) exposure to COVID-19; K76.0 Fatty (change of) liver, not elsewhere classified; Z83.2 Family history of diseases of the blood and blood-forming organs and certain disorders involving the immune mechanism
CPT/HCPCS: 36415; 74176; 76705; 80053; 80320; 82150; 82306; 82607; 82746; 83036; 83540; 83550; 83605; 83690; 84443; 84484; 85007; 85014; 85018; 85025; 85027; 85610; 85730; 87040; 87426; 96361; 96374; 96375; C9113; G0378; J2405; J7060

== ENCOUNTER 2022-03-08 19:41 | Emergency (ER) | payer OTHER ==
[~2022-03-08] VITALS: Ht 167.6 cm; Wt 49.4 kg
[~2022-03-08 19:41] MED LIST changes: +CHOL20007 PO; +PANT40TA2 PO
[2022-03-08 19:44] VITALS: BP 124/97
== END 2022-03-08 21:15 | disposition left against medical advice (07) ==
LOC: ER 19:41
DX: R10.9 Unspecified abdominal pain (principal); R07.89 Other chest pain; Z53.21 Procedure and treatment not carried out due to patient leaving prior to being seen by health care provider
CPT/HCPCS: 93005

== ENCOUNTER 2022-07-02 11:59 | Inpatient (IN) | payer MEDICAID, OTHER ==
[~2022-07-02] VITALS: Ht 165.1 cm; Wt 55.0 kg
[2022-07-02] MEDS ORDERED: SODIUM CHLORIDE 0.9% 1,000 ML IV ONE ×3 (13:00→14:45)
[2022-07-02 13:16] LABS: Basophils # (auto) 0 10 ^3/uL (0-0.2); Eosinophils # (auto) 0 10 ^3/uL (0-0.8); Hematocrit 24.6 % (36.0-46.0); Hemoglobin 8.5 g/dL (12.2-16.2); Lymphocytes # (auto) 1.1 10 ^3/uL (0.4-5.4); Mean Corpuscular Hgb Conc. 34.6 g/dL (32.0-36.0); Mean Corpuscular Volume 105.3 fL (80.0-100.0); Neutrophils # (auto) 5.1 10 ^3/uL (1.6-8.6); Nucleated Red Blood Cells % 0.1 %; Red Blood Cells 2.34 10^6/uL (4.0-5.20); White Blood Cell 6.9 10^3/uL (4.4-10.8)
[2022-07-02 13:18] LABS: Basophils % (auto) 0.4 % (0.0-2.0); Eosinophils % (auto) 0.2 % (0.0-7.0); Lymphocytes % (auto) 16.5 % (10.0-50.0); Mean Corpuscular Hemoglobin 36.4 pg (28.0-32.0); Monocytes # (auto) 0.7 10 ^3/uL (0-1.3); Monocytes % (auto) 9.5 % (0.0-12.0); Neutrophils % (auto) 73.4 % (37.0-80.0)
[2022-07-02 13:29] LABS: Cannabinoid Screen, Urine NEGATIVE (NEGATIVE)
[2022-07-02 13:38] LABS: Urine Bacteria NONE SEEN /hpf (None Seen); Urine Blood Negative /uL (Negative); Urine Hyaline Cast FEW /lpf (0 - 2); Urine Mucus FEW (None Seen); Urine Specific Gravity 1.024 (1.001-1.035); Urine WBC 8 /hpf (0 - 5)
[2022-07-02 13:39] LABS: Amphetamine Screen, Urine NEGATIVE (NEGATIVE); Barbiturate Scree,Urine NEGATIVE (NEGATIVE); Benzodiazephine Screen, Urine NEGATIVE (NEGATIVE); Cocaine Screen, Urine NEGATIVE (NEGATIVE); Opiate Scree,Urine POSITIVE (NEGATIVE); Phencyclidine Screen, Urine NEGATIVE (NEGATIVE)
[2022-07-02 13:43] LABS: Calcium 7.4 mg/dL (8.5-10.1); Potassium 4.3 mmol/L (3.5-5.1)
[2022-07-02 13:50] LABS: Albumin 1.4 g/dL (3.4-5.0); BUN/Creatinine Ratio 5.7; Bilirubin, Total 1.3 mg/dL (0.2-1.0); Total Protein 5.6 g/dL (6.4-8.2)
[2022-07-02 14:04] LABS: Lactic Acid w/Reflex 5.8 mmol/L (0.4-2.0)
[2022-07-02] MEDS ORDERED: fentaNYL CITRATE 100 MCG/2 ML VL IV ONE (19:15)
[2022-07-02] MEDS ORDERED: ONDANSETRON HCL 4 MG/2 ML VIAL IV ONE (19:15)
[2022-07-02] MEDS ORDERED: cefTRIAXone 1GM/50ML D5W 50 ML IV ONE (22:30)
[2022-07-02] MEDS ORDERED: ONDANSETRON HCL 4 MG/2 ML VIAL IV PRN (22:30)
[2022-07-02] MEDS ORDERED: ACETAMINOPHEN 325 MG TAB PO PRN (22:30)
[2022-07-02] MEDS ORDERED: TEMAZEPAM 15 MG CAP PO PRN (22:30)
[2022-07-02] MEDS ORDERED: SODIUM CHLORIDE 0.9% 1,000 ML IV SCH (22:30)
[2022-07-02] MEDS: MORPHINE SULFATE INJ 2 MG/ml SYRG IV PRN (23:00)
[2022-07-03] MEDS: MORPHINE SULFATE INJ 2 MG/ml SYRG IV PRN (02:42)
[2022-07-03] MEDS ORDERED: HYDR-4902 PO (02:46)
[2022-07-03] MEDS: HYDROcodone-ACET 5/325MG TAB PO PRN ×2 (03:20→10:21)
[2022-07-03 05:00] VITALS: BP 92/58
[2022-07-03 05:45] LABS: Basophils # (auto) 0 10 ^3/uL (0-0.2); Eosinophils # (auto) 0 10 ^3/uL (0-0.8); Hematocrit 22.7 % (36.0-46.0); Hemoglobin 7.7 g/dL (12.2-16.2); Mean Corpuscular Volume 105.4 fL (80.0-100.0); Neutrophils # (auto) 5.4 10 ^3/uL (1.6-8.6); Red Blood Cells 2.16 10^6/uL (4.0-5.20)
[2022-07-03] MEDS ORDERED: chlordiazePOXIDE HCL 25 MG CAP PO PRN (05:45)
[2022-07-03 05:47] LABS: Basophils % (auto) 0.1 % (0.0-2.0); Eosinophils % (auto) 0.2 % (0.0-7.0); Lymphocytes # (auto) 1.1 10 ^3/uL (0.4-5.4); Lymphocytes % (auto) 15.2 % (10.0-50.0); Mean Corpuscular Hemoglobin 35.7 pg (28.0-32.0); Mean Corpuscular Hgb Conc. 33.9 g/dL (32.0-36.0); Monocytes # (auto) 0.5 10 ^3/uL (0-1.3); Monocytes % (auto) 7.8 % (0.0-12.0); Neutrophils % (auto) 76.7 % (37.0-80.0); Nucleated Red Blood Cells % 0.1 %
[2022-07-03 06:07] LABS: Potassium 4.2 mmol/L (3.5-5.1)
[2022-07-03 06:19] LABS: Albumin 1.4 g/dL (3.4-5.0); BUN/Creatinine Ratio 10.8; Calcium 7.1 mg/dL (8.5-10.1); Total Protein 4.9 g/dL (6.4-8.2)
[2022-07-03 09:00] VITALS: BP 89/52
[2022-07-03] MEDS: FOLIC ACID 1 MG, MULTIPLE VITAMIN 10 ML, MAGNESIUM SULF SDV 50% 8 MEQ, THIAMINE INJ 100... INJ SCH ×5 (12:26)
[2022-07-03] MEDS ORDERED: KETOROLAC TROMETH 30 MG/ML 1ML VIAL IV PRN (12:30)
[2022-07-03 12:39] VITALS: BP 96/59
[2022-07-03] MEDS ORDERED: SODIUM BICARBONATE 8.4 % INJ 50ML VIAL IV ONE (14:00)
[2022-07-03] MEDS: KETOROLAC TROMETH 30 MG/ML 1ML VIAL IV PRN ×2 (14:42→21:04)
[2022-07-03 17:00] VITALS: BP 93/58
[2022-07-03] MEDS: SUCRALFATE 1 GM/10 ML ORAL SUSP PO SCH ×2 (17:45→21:28)
[2022-07-03] MEDS: LACTATED RINGER'S 1,000 ML IV SCH (20:15)
[2022-07-03] MEDS: cefTRIAXone 1GM/50ML D5W 50 ML IV SCH (21:29)
[2022-07-03 22:00] VITALS: BP 93/62
[2022-07-04] MEDS: HYDROcodone-ACET 5/325MG TAB PO PRN ×4 (00:43→21:30)
[2022-07-04 05:00] VITALS: BP 103/69
[2022-07-04 05:40] LABS: Basophils # (auto) 0 10 ^3/uL (0-0.2); Eosinophils # (auto) 0 10 ^3/uL (0-0.8); Hematocrit 23.1 % (36.0-46.0); Hemoglobin 7.6 g/dL (12.2-16.2); Monocytes # (auto) 0.4 10 ^3/uL (0-1.3); Nucleated Red Blood Cells % 0.1 %; Red Blood Cells 2.13 10^6/uL (4.0-5.20); Red Cell Distribution Width 13.2 % (11.8-14.3)
[2022-07-04 05:44] LABS: Basophils % (auto) 0.4 % (0.0-2.0); Eosinophils % (auto) 0.5 % (0.0-7.0); Lymphocytes # (auto) 2.1 10 ^3/uL (0.4-5.4); Lymphocytes % (auto) 32.7 % (10.0-50.0); Mean Corpuscular Hemoglobin 35.7 pg (28.0-32.0); Mean Corpuscular Hgb Conc. 32.9 g/dL (32.0-36.0); Mean Corpuscular Volume 108.5 fL (80.0-100.0); Monocytes % (auto) 6.7 % (0.0-12.0); Neutrophils # (auto) 3.8 10 ^3/uL (1.6-8.6); Neutrophils % (auto) 59.7 % (37.0-80.0); White Blood Cell 6.3 10^3/uL (4.4-10.8)
[2022-07-04 05:56] LABS: Albumin 1.2 g/dL (3.4-5.0); BUN/Creatinine Ratio 11.4; Calcium 7.1 mg/dL (8.5-10.1); Lactic Acid w/Reflex 2.6 mmol/L (0.4-2.0); Potassium 3.8 mmol/L (3.5-5.1)
[2022-07-04 06:11] LABS: Bilirubin, Total 0.5 mg/dL (0.2-1.0); Total Protein 4.8 g/dL (6.4-8.2)
[2022-07-04] MEDS: SUCRALFATE 1 GM/10 ML ORAL SUSP PO SCH ×4 (06:18→21:44)
[2022-07-04 08:00] VITALS: BP 107/77
[2022-07-04] MEDS: KETOROLAC TROMETH 30 MG/ML 1ML VIAL IV PRN ×3 (08:54→23:55)
[2022-07-04 09:00] VITALS: BP 107/77
[2022-07-04 13:00] VITALS: BP 114/87
[2022-07-04] MEDS: FOLIC ACID 1 MG, MULTIPLE VITAMIN 10 ML, MAGNESIUM SULF SDV 50% 8 MEQ, THIAMINE INJ 100... INJ SCH ×5 (13:02)
[2022-07-04 16:47] VITALS: BP 123/90
[2022-07-04] MEDS: LACTATED RINGER'S 1,000 ML IV SCH ×2 (20:00)
[2022-07-04] MEDS: cefTRIAXone 1GM/50ML D5W 50 ML IV SCH (21:44)
[2022-07-04 21:47] VITALS: BP 122/94
[2022-07-05] MEDS: HYDROcodone-ACET 5/325MG TAB PO PRN (03:34)
[2022-07-05 05:00] VITALS: BP 119/82
[2022-07-05] MEDS: LACTATED RINGER'S 1,000 ML IV SCH (05:21)
[2022-07-05] MEDS: SUCRALFATE 1 GM/10 ML ORAL SUSP PO SCH (06:23)
[2022-07-05 08:00] VITALS: BP 105/75
[2022-07-05] MEDS ORDERED: METR500T PO (08:49)
[2022-07-05] MEDS ORDERED: LEVO500T31 PO (08:49)
[2022-07-05] MEDS ORDERED: HYDR-4902 PO (08:49)
[2022-07-05 09:00] VITALS: BP 105/75
[2022-07-05 09:10] LABS: Hepatitis B Surface Antibody Negative (Negative)
[2022-07-05] MEDS: KETOROLAC TROMETH 30 MG/ML 1ML VIAL IV PRN (09:15)
[2022-07-05 09:44] LABS: Hepatitis A Total Antibody Positive (Negative)
[2022-07-05 11:32] LABS: Hepatitis C Antibody Negative (Negative)
[2022-07-05 11:35] VITALS: BP 105/75
== END 2022-07-05 13:00 | disposition home or self-care (01) | DRG 438 ==
LOC: ER 11:59 → OVERFLOW 22:31 → CENTRAL 23:27
PROVIDERS: ADMIT Nurse Practitioner; ATTEND Family Medicine
DX: K85.90 Acute pancreatitis without necrosis or infection, unspecified (principal); E43 Unspecified severe protein-calorie malnutrition; N39.0 Urinary tract infection, site not specified; R78.81 Bacteremia; K80.00 Calculus of gallbladder with acute cholecystitis without obstruction; R74.01 Elevation of levels of liver transaminase levels; K70.30 Alcoholic cirrhosis of liver without ascites; E86.0 Dehydration; F10.10 Alcohol abuse, uncomplicated; K76.0 Fatty (change of) liver, not elsewhere classified; Z20.822 Contact with and (suspected) exposure to COVID-19; D63.8 Anemia in other chronic diseases classified elsewhere; R79.89 Other specified abnormal findings of blood chemistry; I95.9 Hypotension, unspecified; Z68.20 Body mass index [BMI] 20.0-20.9, adult; Z79.899 Other long term (current) drug therapy
CPT/HCPCS: 36415; 74176; 76705; 78226; 80053; 80307; 81001; 82150; 83605; 83690; 84702; 85025; 85045; 86704; 86706; 86708; 86803; 86850; 86900; 86901; 87040; 87077; 87086; 87088; 87186; 87340; 93005; 96361; 96365; 96375; G0378; J0696; J1885; J2405

== ENCOUNTER 2022-08-24 14:26 | Emergency (ER) | payer MEDICAID ==
[~2022-08-24] VITALS: Ht 167.6 cm; Wt 40.3 kg
[~2022-08-24 14:26] MED LIST changes: +HYDR-4902 PO; +LEVO500T31 PO; +METR500T PO
[2022-08-24 15:53] VITALS: BP 104/72
[2022-08-24] MEDS ORDERED: diphenhdrAMINE HCL 50 MG/1 ML VL IM ONE (16:00)
[2022-08-24] MEDS ORDERED: methylPREDNISolone SOD SUCC 40 MG/ML VL IM ONE (16:00)
[2022-08-24] MEDS ORDERED: METH4PAK PO (16:36)
[2022-08-24] MEDS ORDERED: TRIA0.02 TOP (16:36)
[2022-08-24] MEDS ORDERED: CEPH-510 PO (16:36)
[2022-08-24] MEDS ORDERED: HYDR25CA PO (16:36)
== END 2022-08-24 16:53 | disposition home or self-care (01) ==
LOC: ER 14:27
DX: L20.9 Atopic dermatitis, unspecified (principal)
CPT/HCPCS: 96372; 99284; J1200; J2920